=== PATIENT | male | born 1960 | race Caucasian/White ===

== ENCOUNTER → 2016-08-13 | Outpatient (CLI) | payer OTHER ==
[~2016-08-13] MED LIST: DICL50TA3 PO; DICY20TA35 PO; FLUO40CA8 PO; GABA1CAP5 PO; LEVO25TA PO; OXYC-57 PO; RANI300T2 PO; TAMS0.4C38 PO; TRAZ50TA35 PO; VENL75CA PO
[2016-08-13 13:20] LABS: BASO % 0.2 %; BASO ABS # 0.02 K/uL (0-0.2); COMPLETE YES; EOS % 0.3 %; HEMATOCRIT 44.5 % (42-52); IG% 0.4 %; LYMPH % 13.1 %; LYMPH ABS # 1.28 K/uL (1.2-3.4); MEAN CELL VOLUME 98.7 fL (80-100); MEAN CORPUSCULAR HGB CONC 33.5 g/dl (32-36); MONO % 5.1 %; NEUT % 80.9 %; PLATELET COUNT 216 K/uL (130-400); RED BLOOD COUNT 4.51 M/uL (4.7-6.1); WHITE BLOOD COUNT 9.74 K/uL (4.8-10.8)
== END | disposition home or self-care (01) ==
LOC: C.LABBC 11:21
PROVIDERS: ATTEND Orthopaedic Surgery
DX: M25.511 Pain in right shoulder (principal)

== ENCOUNTER → 2016-10-11 | Outpatient (CLI) | payer OTHER ==
--- NOTE | 2016-10-11 07:48 | DIAGNOSTIC IMAGING REPORT ---
RIGHT UPPER EXTREMITY WITHOUT HISTORY:55 yearsMaleRIGHT SHOULDER PAIN. Patient presents with right shoulder pain status post arthroplasty. Concern for loosening or possible infection of the hardware. COMPARISON: Right shoulder radiographs 08/13/2016. TECHNIQUE: Multiple axial CT images of the right upper extremity were obtained without the use of IV contrast. Coronal and sagittal reformatted images were obtained from the axial data set and were submitted for review. FINDINGS: Mild degenerative changes are present within the acromioclavicular joint. The right shoulder hemiarthroplasty is present involving the humeral head without evidence of hardware loosening or fracture. Screw tracks within the glenoid are present with areas of subcortical lucency within the superior and inferior portions of the glenoid. 8 x 4 x 5 mm bone fragment is present approximately 6 mm inferolateral to the inferior aspect of the glenoid which appears intra-articular. The humeral head is somewhat high riding within the glenoid fossa with the coracohumeral interval measuring 7 mm. Evaluation of the soft tissues about the shoulder is limited secondary to streak artifact from the hardware. There is no pathologic adenopathy. There is mild to moderate atrophy of the subscapularis musculature (for example well seen on images 60-70 of the sagittal series and also on image 278 of the axial series). The rotator cuff tendons are not well visualized. The imaged lung wilder appear clear. IMPRESSION: 1. Right shoulder hemiarthroplasty hardware is intact without evidence of hardware fracture or loosening. 2. Screw tracks from hardware removal are present within the glenoid with areas of subcortical lucency involving all quadrants of both the superior and inferior glenoid. Differential considerations would include postsurgical changes with sequela of osteoarthritis. Underlying particle disease could cause a similar appearance. 3. Intra-articular loose body is present within the inferior glenohumeral recess, 8 mm. 4. Moderate atrophy of the subscapularis musculature suggests underlying tendon tear which is not well seen on this study secondary to streak artifact. The above report was generated using voice recognition software. It may contain grammatical, syntax or spelling errors. Electronically signed by: Geoffrey Avitia 10/11/2016 7:47 AM Dictated Date/Time: 10/11/2016 7:36 AM
== END | disposition home or self-care (01) ==
LOC: C.CTS 07:00
PROVIDERS: ATTEND Orthopaedic Surgery
DX: T84.84XA Pain due to internal orthopedic prosthetic devices, implants and grafts, initial encounter (principal); Y83.1 Surgical operation with implant of artificial internal device as the cause of abnormal reaction of the patient, or of later complication, without mention of misadventure at the time of the procedure